=== PATIENT | male | born 1960 | race Asian ===

== ENCOUNTER 2022-09-06 06:19 | Inpatient (IN) | payer MEDICARE, OTHER ==
[~2022-09-06] VITALS: Ht 165.1 cm; Wt 51.9 kg
[2022-09-06] MEDS ORDERED: FUROSEMIDE 40 MG/4 ML VIAL IVP ONE (06:30)
[2022-09-06 06:44] LABS: BASOPHILS % (AUTO) 1.3 % (0.0-2.0); EOSINOPHILS % (AUTO) 7.5 % (1.0-6.0); HEMATOCRIT 42.5 % (41-53); HEMOGLOBIN 12.9 g/dL (13.5-17.5); LYMPHOCYTES % (AUTO) 14.3 % (22.0-44.0); MEAN CORPUSCULAR HEMOGLOBIN 21.3 pg (26.0-34.0); MEAN CORPUSCULAR HGB CONC 30.5 G/dL (31.0-37.0); MEAN CORPUSCULAR VOLUME 70 fL (80-100); MONOCYTES # (AUTO) 0.7 K/uL (0.1-1.0); MONOCYTES % (AUTO) 10.3 % (2.0-9.0); NEUTROPHILS # (AUTO) 4.7 K/uL (1.8-7.7); NEUTROPHILS % (AUTO) 66.6 % (40.0-70.0); PLATELET COUNT (AUTO) 279 K/uL (150-450); RED BLOOD CELL COUNT(AUTO) 6.08 MIL/uL (4.50-5.90); RED CELL DISTRIBUTION WIDTH 16.3 % (11.5-14.5)
[2022-09-06] MEDS ORDERED: DIVA-112 PO (06:52)
[2022-09-06] MEDS ORDERED: FURO40TA5 PO (06:52)
[2022-09-06] MEDS ORDERED: LOSA-381 PO (06:52)
[2022-09-06] MEDS ORDERED: ASPI-1444 PO (06:52)
[2022-09-06] MEDS ORDERED: ATOR40TA71 PO (06:52)
[2022-09-06] MEDS ORDERED: CARV6.2534 PO (06:52)
[2022-09-06] MEDS ORDERED: LINA5TAB PO (06:52)
[2022-09-06 06:58] LABS: INR 0.9 (0.9-1.1); PROTHROMBIN TIME 9.9 SEC (9.4-11.6)
[2022-09-06 07:02] LABS: COVID AG,FIA SOURCE NASAL SWAB
[2022-09-06 07:20] LABS: CALCIUM, TOTAL 8.7 mg/dL (8.8-10.5); CREATININE 1.88 mg/dL (0.60-1.30); POTASSIUM 4.7 mmol/L (3.5-5.1)
[2022-09-06 07:26] LABS: ALBUMIN 3.2 g/dL (3.4-5.0); BILIRUBIN,TOTAL 0.1 mg/dL (0.1-1.0); TOTAL PROTEIN, SERUM 7.6 g/dL (6.4-8.2)
[2022-09-06 07:50] LABS: APPEARANCE,URINE CLEAR (CLEAR); BILIRUBIN,URINE NEGATIVE (NEGATIVE); GLUCOSE, URINE (UA) 150-200 mg/dL (NEGATIVE); KETONES,URINE NEGATIVE (NEGATIVE); LEUKOCYTE ESTERASE ,URINE NEGATIVE (NEGATIVE); NITRATE,URINE NEGATIVE (NEGATIVE); OCCULT BLOOD,URINE NEGATIVE (NEGATIVE); PH,URINE 5.5 (5.0-8.0); PROTEIN,URINE 30-70 mg/dL (NEGATIVE); UROBILINOGEN,URINE <=1.0 mg/dL (<=1.0)
[2022-09-06 07:53] LABS: BACTERIA,URINE None Seen /HPF (None Seen); RBC,URINE None Seen /HPF (0-2); WBC,URINE None Seen /HPF (0-5)
[2022-09-06] MEDS ORDERED: HydrALAZINE HCL 20 MG/ML VIAL IVP PRN (08:45)
[2022-09-06] MEDS ORDERED: ACETAMINOPHEN 325 MG TABLET PO PRN (09:00)
[2022-09-06] MEDS ORDERED: DOCUSATE SODIUM 100 MG CAPSULE PO PRN (09:00)
[2022-09-06] MEDS ORDERED: IPRATROPIUM BROMIDE 0.5 MG/2.5 ML NEB SOLUTION NEB PRN (09:00)
[2022-09-06] MEDS ORDERED: ONDANSETRON HCL 4 MG/2 ML VIAL IVP PRN (09:00)
[2022-09-06] MEDS ORDERED: BISACODYL 10 MG RECTAL RECTAL SUPPOSITORY PR PRN (09:00)
[2022-09-06] MEDS ORDERED: ALBUTEROL SULFATE 2.5 MG/0.5 ML NEB SOLUTION NEB PRN (09:00)
[2022-09-06] MEDS ORDERED: 0.9% SODIUM CHLORIDE 10 ML SYRINGE IVP PRN (09:00)
[2022-09-06] MEDS ORDERED: DEXTROSE 50%-WATER 25 GM/50 ML SYRINGE IVP PRN (09:00)
[2022-09-06] MEDS: DIVALPROEX SODIUM 500 MG DR TABLET PO SCH (09:30)
[2022-09-06] MEDS: ASPIRIN 81 MG DR TABLET PO SCH (09:30)
[2022-09-06] MEDS: CARVEDILOL 6.25 MG TABLET PO SCH ×2 (09:30→21:06)
[2022-09-06] MEDS: ATORVASTATIN CALCIUM 40 MG TABLET PO SCH (09:30)
[2022-09-06] MEDS: PANTOPRAZOLE SODIUM 40 MG DR TABLET PO SCH (09:30)
[2022-09-06 09:45] LABS: % IRON SATURATION 13.1 % (30-44); IRON, SERUM 49 mcg/dL (50-175); TOTAL IRON BINDING CAPACITY 372 mcg/dL (250-450)
[2022-09-06 10:28] LABS: INFLUENZA TYPE A NEGATIVE FOR TYPE A (NEGATIVE); INFLUENZA TYPE B NEGATIVE FOR TYPE B (NEGATIVE)
[2022-09-06 10:42] LABS: FERRITIN 109 ng/mL (26-388)
[2022-09-06 16:07] VITALS: BP 148/96
[2022-09-06 16:25] LABS: AMPHET/METH SCREEN,URINE POSITIVE (NEGATIVE); BARBITURATE SCREEN, URINE NEGATIVE (NEGATIVE); BENZODIAZEPINES SCREEN,URINE NEGATIVE (NEGATIVE); CANNABINOID SCREEN,URINE NEGATIVE (NEGATIVE); COCAINE SCREEN,URINE NEGATIVE (NEGATIVE); METHADONE SCREEN, URINE NEGATIVE (NEGATIVE); OPIATE SCREEN,URINE NEGATIVE (NEGATIVE); PHENCYCLIDINE SCREEN,URINE NEGATIVE (NEGATIVE)
[2022-09-06] MEDS: INSULIN LISPRO 100 UNITS/ML SQ PRN (17:29)
[2022-09-06 20:38] VITALS: BP 135/85
[2022-09-06] MEDS: HEPARIN SODIUM,PORCINE 5,000 UNITS/ML VIAL SQ SCH (21:06)
[2022-09-07 00:07] VITALS: BP 121/72
[2022-09-07] MEDS: INSULIN LISPRO 100 UNITS/ML SQ PRN ×2 (05:59→12:43)
[2022-09-07 06:18] LABS: BASOPHILS % (AUTO) 1.3 % (0.0-2.0); HEMATOCRIT 48.9 % (41-53); HEMOGLOBIN 15.2 g/dL (13.5-17.5); LYMPHOCYTES # (AUTO) 0.9 K/uL (1.0-4.8); LYMPHOCYTES % (AUTO) 12.5 % (22.0-44.0); MEAN CORPUSCULAR HEMOGLOBIN 21.5 pg (26.0-34.0); MEAN CORPUSCULAR HGB CONC 31.1 G/dL (31.0-37.0); MEAN CORPUSCULAR VOLUME 69 fL (80-100); MONOCYTES # (AUTO) 0.6 K/uL (0.1-1.0); MONOCYTES % (AUTO) 8.5 % (2.0-9.0); NEUTROPHILS # (AUTO) 5.2 K/uL (1.8-7.7); NEUTROPHILS % (AUTO) 68.7 % (40.0-70.0); PLATELET COUNT (AUTO) 312 K/uL (150-450); RED BLOOD CELL COUNT(AUTO) 7.09 MIL/uL (4.50-5.90); RED CELL DISTRIBUTION WIDTH 16.4 % (11.5-14.5)
[2022-09-07 06:27] VITALS: BP 146/96
[2022-09-07 06:29] LABS: ALBUMIN 3.5 g/dL (3.4-5.0); BILIRUBIN,TOTAL 0.6 mg/dL (0.1-1.0); CALCIUM, TOTAL 9.2 mg/dL (8.8-10.5); CHOL/HDL RATIO 2.6 (4.2-7.3); CREATININE 1.8 mg/dL (0.60-1.30); POTASSIUM 4.6 mmol/L (3.5-5.1)
[2022-09-07] MEDS: ASPIRIN 81 MG DR TABLET PO SCH (07:43)
[2022-09-07] MEDS: DIVALPROEX SODIUM 500 MG DR TABLET PO SCH (07:44)
[2022-09-07] MEDS: PANTOPRAZOLE SODIUM 40 MG DR TABLET PO SCH (07:44)
[2022-09-07] MEDS: ATORVASTATIN CALCIUM 40 MG TABLET PO SCH (07:44)
[2022-09-07] MEDS: CARVEDILOL 6.25 MG TABLET PO SCH (07:44)
[2022-09-07] MEDS: HEPARIN SODIUM,PORCINE 5,000 UNITS/ML VIAL SQ SCH ×2 (07:45→20:49)
[2022-09-07 08:04] VITALS: BP 164/109
[2022-09-07] MEDS ORDERED: FUROSEMIDE 40 MG/4 ML VIAL IVP SCH (09:00)
[2022-09-07 11:27] VITALS: BP 141/98
[2022-09-07] MEDS: LOSARTAN POTASSIUM 25 MG TABLET PO SCH (12:36)
[2022-09-07 15:20] VITALS: BP 125/63
[2022-09-07 20:00] VITALS: BP 122/73
[2022-09-07] MEDS: CARVEDILOL 12.5 MG TABLET PO SCH (20:49)
[2022-09-08] VITALS: BP 120/70
[2022-09-08 04:00] VITALS: BP 123/72
[2022-09-08] MEDS: INSULIN LISPRO 100 UNITS/ML SQ PRN ×3 (06:25→18:16)
[2022-09-08 08:06] VITALS: BP 127/85
[2022-09-08] MEDS: DIVALPROEX SODIUM 500 MG DR TABLET PO SCH (10:30)
[2022-09-08] MEDS: CARVEDILOL 12.5 MG TABLET PO SCH ×2 (10:30→20:08)
[2022-09-08] MEDS: LOSARTAN POTASSIUM 25 MG TABLET PO SCH (10:30)
[2022-09-08] MEDS: ASPIRIN 81 MG DR TABLET PO SCH (10:31)
[2022-09-08] MEDS: FUROSEMIDE 40 MG TABLET PO SCH (10:31)
[2022-09-08] MEDS: HEPARIN SODIUM,PORCINE 5,000 UNITS/ML VIAL SQ SCH ×2 (10:32→20:08)
[2022-09-08] MEDS: PANTOPRAZOLE SODIUM 40 MG DR TABLET PO SCH (10:32)
[2022-09-08] MEDS: ATORVASTATIN CALCIUM 40 MG TABLET PO SCH (10:32)
[2022-09-08 11:34] VITALS: BP 116/71
[2022-09-08 16:06] LABS: CREATININE 2.36 mg/dL (0.60-1.30)
[2022-09-08 20:07] VITALS: BP 120/71
[2022-09-09 00:55] VITALS: BP 110/68
[2022-09-09 06:47] LABS: BASOPHILS % (AUTO) 1.3 % (0.0-2.0); EOSINOPHILS % (AUTO) 7.8 % (1.0-6.0); HEMATOCRIT 48.1 % (41-53); HEMOGLOBIN 14.9 g/dL (13.5-17.5); LYMPHOCYTES # (AUTO) 1.7 K/uL (1.0-4.8); LYMPHOCYTES % (AUTO) 29.8 % (22.0-44.0); MEAN CORPUSCULAR HEMOGLOBIN 21.2 pg (26.0-34.0); MEAN CORPUSCULAR VOLUME 68 fL (80-100); MONOCYTES # (AUTO) 0.5 K/uL (0.1-1.0); MONOCYTES % (AUTO) 8.8 % (2.0-9.0); NEUTROPHILS # (AUTO) 2.9 K/uL (1.8-7.7); NEUTROPHILS % (AUTO) 52.3 % (40.0-70.0); PLATELET COUNT (AUTO) 323 K/uL (150-450); RED BLOOD CELL COUNT(AUTO) 7.03 MIL/uL (4.50-5.90); RED CELL DISTRIBUTION WIDTH 16.2 % (11.5-14.5)
[2022-09-09] MEDS: INSULIN LISPRO 100 UNITS/ML SQ PRN ×3 (07:03→20:20)
[2022-09-09 07:10] LABS: ALBUMIN 3.2 g/dL (3.4-5.0); BILIRUBIN,TOTAL 0.3 mg/dL (0.1-1.0); CALCIUM, TOTAL 9.1 mg/dL (8.8-10.5); CREATININE 2.35 mg/dL (0.60-1.30); TOTAL PROTEIN, SERUM 7.4 g/dL (6.4-8.2)
[2022-09-09 07:13] VITALS: BP 138/70
[2022-09-09 07:48] VITALS: BP 126/75
[2022-09-09] MEDS: HEPARIN SODIUM,PORCINE 5,000 UNITS/ML VIAL SQ SCH ×2 (08:36→20:11)
[2022-09-09] MEDS: LOSARTAN POTASSIUM 25 MG TABLET PO SCH (08:38)
[2022-09-09] MEDS: FUROSEMIDE 40 MG TABLET PO SCH (08:38)
[2022-09-09] MEDS: CARVEDILOL 12.5 MG TABLET PO SCH ×2 (08:38→20:10)
[2022-09-09] MEDS: ATORVASTATIN CALCIUM 40 MG TABLET PO SCH (08:38)
[2022-09-09] MEDS: DIVALPROEX SODIUM 500 MG DR TABLET PO SCH (08:38)
[2022-09-09] MEDS: PANTOPRAZOLE SODIUM 40 MG DR TABLET PO SCH (08:39)
[2022-09-09] MEDS: ASPIRIN 81 MG DR TABLET PO SCH (08:39)
[2022-09-09 09:46] LABS: GLUCOMETER DEV NAME(LOC) 5N.1C; GLUCOSE,POINT OF CARE 46 MG/DL (70-110)
[2022-09-09 09:46] LABS: GLUCOMETER DEV NAME(LOC) 5N.1C; GLUCOSE,POINT OF CARE 242 MG/DL (70-110)
[2022-09-09 09:46] LABS: GLUCOMETER DEV NAME(LOC) 5N.1C; GLUCOSE,POINT OF CARE 207 MG/DL (70-110)
[2022-09-09 09:46] LABS: GLUCOMETER DEV NAME(LOC) 5N.1C; GLUCOSE,POINT OF CARE 270 MG/DL (70-110)
[2022-09-09 09:46] LABS: GLUCOMETER DEV NAME(LOC) 5N.1C; GLUCOSE,POINT OF CARE 97 MG/DL (70-110)
[2022-09-09 09:47] LABS: GLUCOMETER DEV NAME(LOC) 5N.1C; GLUCOSE,POINT OF CARE 161 MG/DL (70-110)
[2022-09-09 09:47] LABS: GLUCOMETER DEV NAME(LOC) 5N.1C; GLUCOSE,POINT OF CARE 95 MG/DL (70-110)
[2022-09-09 09:47] LABS: GLUCOMETER DEV NAME(LOC) 5N.1C; GLUCOSE,POINT OF CARE 203 MG/DL (70-110)
[2022-09-09 09:47] LABS: GLUCOMETER DEV NAME(LOC) 5N.1C; GLUCOSE,POINT OF CARE 174 MG/DL (70-110)
[2022-09-09 11:29] VITALS: BP 127/69
[2022-09-09 14:56] LABS: GLUCOMETER DEV NAME(LOC) 5N.1C; GLUCOSE,POINT OF CARE 299 MG/DL (70-110)
[2022-09-09 15:45] VITALS: BP 115/56
[2022-09-09 20:07] VITALS: BP 120/83
[2022-09-10 00:30] VITALS: BP 118/70
[2022-09-10 03:37] LABS: GLUCOMETER DEV NAME(LOC) 5S.1B; GLUCOSE,POINT OF CARE 251 MG/DL (70-110)
[2022-09-10 03:37] LABS: GLUCOMETER DEV NAME(LOC) 5S.1B; GLUCOSE,POINT OF CARE 76 MG/DL (70-110)
[2022-09-10 03:37] LABS: GLUCOMETER DEV NAME(LOC) 5S.1B; GLUCOSE,POINT OF CARE 62 MG/DL (70-110)
[2022-09-10 03:37] LABS: GLUCOMETER DEV NAME(LOC) 5S.1B; GLUCOSE,POINT OF CARE 129 MG/DL (70-110)
[2022-09-10 03:37] LABS: GLUCOMETER DEV NAME(LOC) 5S.1B; GLUCOSE,POINT OF CARE 203 MG/DL (70-110)
[2022-09-10 03:37] LABS: GLUCOMETER DEV NAME(LOC) 5S.1B; GLUCOSE,POINT OF CARE 62 MG/DL (70-110)
[2022-09-10 06:44] VITALS: BP 118/76
[2022-09-10] MEDS: INSULIN LISPRO 100 UNITS/ML SQ PRN (07:02)
[2022-09-10 08:06] VITALS: BP 129/90
[2022-09-10] MEDS: CARVEDILOL 12.5 MG TABLET PO SCH (08:43)
[2022-09-10] MEDS: ASPIRIN 81 MG DR TABLET PO SCH (08:43)
[2022-09-10] MEDS: HEPARIN SODIUM,PORCINE 5,000 UNITS/ML VIAL SQ SCH (08:43)
[2022-09-10] MEDS: LOSARTAN POTASSIUM 25 MG TABLET PO SCH (08:44)
[2022-09-10] MEDS: FUROSEMIDE 40 MG TABLET PO SCH (08:44)
[2022-09-10] MEDS: ATORVASTATIN CALCIUM 40 MG TABLET PO SCH (08:45)
[2022-09-10] MEDS: DIVALPROEX SODIUM 500 MG DR TABLET PO SCH (08:45)
[2022-09-10] MEDS: PANTOPRAZOLE SODIUM 40 MG DR TABLET PO SCH (08:45)
[2022-09-10 11:57] LABS: GLUCOMETER DEV NAME(LOC) 5N.1C; GLUCOSE,POINT OF CARE 237 MG/DL (70-110)
== END 2022-09-10 10:30 | disposition home or self-care (01) | DRG 291 ==
LOC: EDBD 06:20 → EMS 06:20 → 5N 15:23
PROVIDERS: ADMIT Internal Medicine; ATTEND Internal Medicine
PROC: 5A09357 Assistance with Respiratory Ventilation, Less than 24 Consecutive Hours, Continuous Positive Airway Pressure (ICD-10-PCS; principal; 2022-09-06)
DX: I13.0 Hypertensive heart and chronic kidney disease with heart failure and stage 1 through stage 4 chronic kidney disease, or unspecified chronic kidney disease (principal); I50.43 Acute on chronic combined systolic (congestive) and diastolic (congestive) heart failure; J96.01 Acute respiratory failure with hypoxia; N17.9 Acute kidney failure, unspecified; Z20.822 Contact with and (suspected) exposure to COVID-19; E11.22 Type 2 diabetes mellitus with diabetic chronic kidney disease; N18.9 Chronic kidney disease, unspecified; F15.10 Other stimulant abuse, uncomplicated; J44.9 Chronic obstructive pulmonary disease, unspecified; I25.10 Atherosclerotic heart disease of native coronary artery without angina pectoris; E78.00 Pure hypercholesterolemia, unspecified; Z95.5 Presence of coronary angioplasty implant and graft; Z79.899 Other long term (current) drug therapy; Z79.82 Long term (current) use of aspirin
CPT/HCPCS: 71045; 80048; 80053; 80061; 81001; 82728; 82962; 83540; 83550; 83880; 84145; 84484; 85025; 85610; 85730; 87081; 87804; 93005; 93306; 93970; 94660; 99285; J1644; J1940; 36415-L1; 36415-TC